=== PATIENT | male | born 1940 | race Caucasian/White ===

== ENCOUNTER 2021-04-24 20:15 | Emergency (ER) | payer OTHER, MEDICARE ==
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
== END 2021-04-24 23:05 | disposition home or self-care (01) ==
LOC: FB.ED 20:15
DX: S39.012A Strain of muscle, fascia and tendon of lower back, initial encounter (principal); V49.40XA Driver injured in collision with unspecified motor vehicles in traffic accident, initial encounter; Y92.410 Unspecified street and highway as the place of occurrence of the external cause
CPT/HCPCS: 72040; 72072; 72100; 99283-25

== ENCOUNTER 2021-12-14 15:44 | Inpatient (IN) | payer MEDICARE, OTHER ==
[2021-12-14] MEDS ORDERED: cefTRIAXone 2 GM in Sodium Chloride 0.9% 50 ML IV ONE ×2 (19:42→20:00)
[2021-12-14] MEDS ORDERED: Codeine/guaiFENesin 10-100 MG/5 ML Syrup 5 ML Cup PO PRN (19:46)
[2021-12-14] MEDS ORDERED: ceFAZolin 2 GM in Premix Bag 1 BAG IV ONE (20:00)
[2021-12-14] MEDS ORDERED: traZODone 100 MG Tab PO SCH (21:00)
[2021-12-14] MEDS ORDERED: traZODone 50 MG Tab PO SCH (22:00)
[2021-12-14] MEDS: QUEtiapine 25 MG Tab PO SCH (22:23)
[2021-12-14] MEDS: Donepezil 5 MG Tab PO SCH (22:23)
[2021-12-14] MEDS: Metoprolol Succinate 25 MG Tab.ER PO SCH (22:38)
[2021-12-14] MEDS: atorvaSTATin 40 MG Tab PO SCH (22:38)
[2021-12-14] MEDS: FLUTICASONE PROPIONATE INH SCH (22:48)
[2021-12-14] MEDS: SALMETEROL INH SCH (22:48)
[2021-12-14] MEDS: Azithromycin 500 MG in Sodium Chloride 0.9% 250 ML IV SCH (23:04)
[2021-12-14] MEDS ORDERED: Enoxaparin 40 MG/0.4 ML Syringe SUBCUT SCH (23:30)
[2021-12-15] MEDS: QUEtiapine 25 MG Tab PO SCH ×2 (00:21→21:09)
[2021-12-15] MEDS: Famotidine 10 MG Tab PO SCH ×2 (00:31→21:10)
[2021-12-15] MEDS ORDERED: Sodium Chloride 0.9% 10 ML Syringe FLUSH PRN (02:51)
[2021-12-15] MEDS: Calcium Carbonate 500 MG Tab.Chew PO PRN ×3 (03:05→17:47)
[2021-12-15] MEDS: FLUTICASONE PROPIONATE INH SCH ×2 (08:11→21:09)
[2021-12-15] MEDS: SALMETEROL INH SCH ×2 (08:11→21:09)
[2021-12-15] MEDS: Metoprolol Succinate 25 MG Tab.ER PO SCH ×2 (08:12→21:08)
[2021-12-15] MEDS ORDERED: Calcium Carbonate 500 MG Tab.Chew PO PRN (08:17)
[2021-12-15] MEDS: amLODIPine 5 MG Tab PO SCH (18:51)
[2021-12-15] MEDS: lamoTRIgine 100 MG Tab PO SCH (18:51)
[2021-12-15] MEDS: Acyclovir 400 MG Tab PO SCH (18:51)
[2021-12-15] MEDS: Losartan 100 MG Tab PO SCH (18:52)
[2021-12-15] MEDS: Pantoprazole 40 MG Tab.CR PO SCH ×2 (18:52→21:10)
[2021-12-15] MEDS: Azithromycin 500 MG in Sodium Chloride 0.9% 250 ML IV SCH (20:50)
[2021-12-15] MEDS ORDERED: cefTRIAXone 1 GM Vial IVPUSH SCH (21:00)
[2021-12-15] MEDS: Enoxaparin 40 MG/0.4 ML Syringe SUBCUT SCH (21:04)
[2021-12-15] MEDS: traZODone 100 MG Tab PO SCH (21:04)
[2021-12-15] MEDS: Finasteride 5 MG Tab PO SCH (21:09)
[2021-12-15] MEDS: atorvaSTATin 40 MG Tab PO SCH (21:10)
[2021-12-15] MEDS: Donepezil 5 MG Tab PO SCH (21:10)
[2021-12-16] MEDS ORDERED: Ondansetron 4 MG Tab.DIS PO PRN (09:10)
[2021-12-16] MEDS: FLUTICASONE PROPIONATE INH SCH ×2 (09:12→20:40)
[2021-12-16] MEDS: SALMETEROL INH SCH ×2 (09:12→20:40)
[2021-12-16] MEDS: amLODIPine 5 MG Tab PO SCH (09:13)
[2021-12-16] MEDS: lamoTRIgine 100 MG Tab PO SCH (09:13)
[2021-12-16] MEDS: Losartan 100 MG Tab PO SCH (09:14)
[2021-12-16] MEDS: Acyclovir 400 MG Tab PO SCH (09:14)
[2021-12-16] MEDS: Metoprolol Succinate 25 MG Tab.ER PO SCH ×2 (09:14→20:45)
[2021-12-16] MEDS: Pantoprazole 40 MG Tab.CR PO SCH ×2 (09:15→20:46)
[2021-12-16] MEDS: Levofloxacin 500 MG Tab PO SCH (09:54)
[2021-12-16] MEDS: Lactobacillus Rhamnosus GG (Probiotic) Cap PO SCH (09:54)
[2021-12-16] MEDS: Calcium Carbonate 500 MG Tab.Chew PO PRN (15:35)
[2021-12-16] MEDS: QUEtiapine 25 MG Tab PO SCH (20:44)
[2021-12-16] MEDS: Enoxaparin 40 MG/0.4 ML Syringe SUBCUT SCH (20:44)
[2021-12-16] MEDS: Donepezil 5 MG Tab PO SCH (20:45)
[2021-12-16] MEDS: atorvaSTATin 40 MG Tab PO SCH (20:45)
[2021-12-16] MEDS: traZODone 100 MG Tab PO SCH (20:45)
[2021-12-16] MEDS: Finasteride 5 MG Tab PO SCH (20:46)
[2021-12-16] MEDS: Famotidine 10 MG Tab PO SCH (20:53)
[2021-12-17] MEDS: Losartan 100 MG Tab PO SCH (09:16)
[2021-12-17] MEDS: Metoprolol Succinate 25 MG Tab.ER PO SCH (09:16)
[2021-12-17] MEDS: SALMETEROL INH SCH (09:17)
[2021-12-17] MEDS: Levofloxacin 500 MG Tab PO SCH (09:17)
[2021-12-17] MEDS: FLUTICASONE PROPIONATE INH SCH (09:17)
[2021-12-17] MEDS: lamoTRIgine 100 MG Tab PO SCH (09:17)
[2021-12-17] MEDS: Lactobacillus Rhamnosus GG (Probiotic) Cap PO SCH (09:17)
[2021-12-17] MEDS: Acyclovir 400 MG Tab PO SCH (09:18)
[2021-12-17] MEDS: Pantoprazole 40 MG Tab.CR PO SCH (09:18)
[2021-12-17] MEDS: amLODIPine 5 MG Tab PO SCH (09:18)
== END 2021-12-17 13:40 | disposition home or self-care (01) | DRG 195 ==
LOC: FB.MS 18:23
PROVIDERS: ADMIT Student in an Organized Health Care Education/Training Program; ATTEND Family Medicine
DX: J18.9 Pneumonia, unspecified organism (principal); Z51.5 Encounter for palliative care; I10 Essential (primary) hypertension; I48.0 Paroxysmal atrial fibrillation; G47.33 Obstructive sleep apnea (adult) (pediatric); R79.89 Other specified abnormal findings of blood chemistry; E83.51 Hypocalcemia; E78.5 Hyperlipidemia, unspecified; F10.11 Alcohol abuse, in remission; K21.9 Gastro-esophageal reflux disease without esophagitis; K22.2 Esophageal obstruction; F32.A Depression, unspecified; D64.9 Anemia, unspecified; Z85.01 Personal history of malignant neoplasm of esophagus
CPT/HCPCS: 36415; 80048; 80053; 85025; 87040; 94150; A9270-GY; J0456; J0696; J1650; J3490; J7050